=== PATIENT | male | born 1985 | race Two or more races ===

== ENCOUNTER 2018-01-28 21:41 | Emergency (ER) | payer MEDICAID ==
[~2018-01-28] VITALS: Ht 165.1 cm; Wt 99.8 kg
[~2018-01-28 21:41] MED LIST: BACTRIM DS TAB1 EAC1 ORAL; HYDROCODON-ACE1 EAC4 ORAL; IBUPROFEN600 MG ORAL; KEFLEX500 MG ORAL; NKM; NORCO 5-325 TA1 EACH ORAL; NORCO 5-325 TA1 EACH PO; OCUFLOX5 ML OP
[2018-01-28] MEDS ORDERED: IBUPROFEN600 MG ORAL (22:33)
--- NOTE | 2018-01-28 22:36 | Diagnostic Imaging Report ---
ADDENDUM - Added by Jose A Powers MD on 01/28/2018 10:53 PM (-07:00) Upon review of the images with the ordering provider, there is soft tissue thickening and edema at distal 2nd digit with nondisplaced tuft fracture. EXAM: XR Left Hand Complete, 3 or More Views CLINICAL HISTORY: TRAUMA TECHNIQUE: Frontal, lateral and oblique views of the left hand. COMPARISON: No relevant prior studies available. FINDINGS: Bones/joints: Unremarkable. No acute fracture. No dislocation. Soft tissues: Unremarkable. No radiopaque foreign body. Other findings: Minuscule likely thenar eminence 0.2 cm radiopaque focus, recommend direct visualization. IMPRESSION: 1. No acute osseous injury. 2. Minuscule likely thenar eminence 0.2 cm radiopaque focus, recommend direct visualization. 3. Otherwise unremarkable study. [employer] 01/28/18 22:52 Call From [facility] Bailey Saldivar MD on 01/28 22:50 (-07: 00)
[2018-01-28 22:58] VITALS: BP 154/98
--- NOTE | 2018-01-28 23:01 | Emergency Room Report ---
History of Present Illness General Chief Complaint: Upper Extremity Injury Source: Patient Present Illness HPI Patient presents with complaints of left index finger pain Patient reports that on Tuesday he was using a hammer and injured the index finger As there was some more signs of bruising He was concerning came to the ER Denies any chest pain or shortness of breath denies any wrist pain denies any back or flank pain Pain is 4 out of 10 Allergies: Coded Allergies: No Known Allergies (Unverified , 05/30/13) Patient History Past Medical History: see triage record Pertinent Family History: none Reviewed Nursing Documentation: PMH: Agreed; PSxH: Agreed Nursing Documentation-PMH Past Medical History: No Stated History Review of Systems All Other Systems: negative except mentioned in HPI Physical Exam Vital Signs Date Time Temp Pulse Resp B/P (MAP) Pulse Ox O2 Delivery O2 Flow Rate FiO2 01/28/18 21:52 98.1 69 18 154/98 99 Room Air 98.1 Sp02 EP Interpretation: reviewed, normal General Appearance: well appearing, no apparent distress Head: normocephalic, atraumatic Eyes: bilateral eye PERRL, bilateral eye EOMI ENT: normal pharynx, no angioedema Neck: full range of motion Musculoskeletal: other - Tender on palpation of the DIP on the distal index finger on the left side, patient is able to flex however and range of motion is intact Neurologic: alert, oriented x3, 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 Skin: other - Subungual hematoma index finger left side Lymphatic: no adenopathy Procedures Splinting Splinting : Consent: Verbal Location: Finger index left Pre-Made Type: metal Splint: Finger splint Pre-Proc Neuro Vasc Exam: normal Post-Proc Neuro Vasc Exam: normal Patient Tolerated: Well Complications: None Medical Decision Making Diagnostic Impression: Primary Impression: finger fracture ER Course Given the patient's history and presentation x-ray imaging was obtained Does show evidence of a tuft fracture At this time the subungual hematoma has also shown signs of affecting the nailbed there is ecchymosis and raised appearance in that area Unfortunately given the delayed presentation further intervention was not performed Patient had a splint applied And requires close outpatient follow-up Other X-Ray Diagnostic Results Other X-Ray Diagnostic Results : X-Ray ordered: Left hand # of Views/Limited Vs Complete: 3 View Indication: Pain EP Interpretation: Yes Interpretation: no dislocation, other - Soft tissue swelling, DIP fracture, no foreign body Impression: Other Electronically Signed by: Bailey Saldivar DO Last Vital Signs Date Time Temp Pulse Resp B/P (MAP) Pulse Ox O2 Delivery O2 Flow Rate FiO2 01/28/18 21:52 98.1 69 18 154/98 99 Room Air 98.1 Status: improved Disposition: HOME, SELF-CARE Condition: Improved Scripts Ibuprofen* (MOTRIN*) 600 Mg Tablet 600 MG ORAL Q8H PRN for For Pain, #20 TAB 0 Refills Prov: Bailey Saldivar DO 01/28/18 [facility]errals[facility] ([facility]P) Patient Instructions: Finger Fracture, [id number] Additional Instructions: Patient is provided with the discharge instructions notified to follow up with primary doctor in the next 2-3 days otherwise return to the er with any worsening symptoms. Please note that this report is being documented using [employer] technology. This can lead to erroneous entry secondary to incorrect interpretation by the dictating instrument. Bailey Saldivar DO Jan 28, 2018 23:01
== END 2018-01-28 23:00 | disposition home or self-care (01) ==
LOC: EMR 22:05
DX: S62.631A Displaced fracture of distal phalanx of left index finger, initial encounter for closed fracture (principal); W22.8XXA Striking against or struck by other objects, initial encounter; Y92.9 Unspecified place or not applicable
CPT/HCPCS: 29130; 99283

== ENCOUNTER 2018-03-01 18:38 | Emergency (ER) | payer MEDICAID ==
[~2018-03-01] VITALS: Ht 167.6 cm; Wt 97.1 kg
--- NOTE | 2018-03-01 18:55 | Emergency Room Report ---
History of Present Illness General Chief Complaint: Upper Respiratory Illness Source: Patient Present Illness HPI 32-year-old male presents to the emergency department complaining of 6 out of 10 in severity pain to the lower chest posteriorly. Patient reports he feels as though he is heart having a hard time breathing and taking a full breath. Patient denies trauma or fall he denies history of asthma, COPD, smoking. Patient denies recent URI or cough. Patient denies fevers or chills. Denies CP , Palpitations, LOC, AMS, dizziness, Changes in Vision, Sensation, paresthesias , or a sudden severe headache. Pt. reports suspicious for anxiety as he was in a verbal argument with his recently. Denies cardiac HX. denies recent travel or claudication. Allergies: Coded Allergies: No Known Allergies (Unverified , 05/30/13) Patient History Past Medical History: see triage record Past Surgical History: none Pertinent Family History: none Reviewed Nursing Documentation: PMH: Agreed; PSxH: Agreed Nursing Documentation-PMH Past Medical History: No Stated History Review of Systems All Other Systems: negative except mentioned in HPI Physical Exam Vital Signs Date Time Temp Pulse Resp B/P (MAP) Pulse Ox O2 Delivery O2 Flow Rate FiO2 03/01/18 18:48 98.5 86 14 127/78 95 Room Air 98.4 Sp02 EP Interpretation: reviewed, normal General Appearance: no apparent distress, alert, GCS 15, non-toxic Head: normocephalic, atraumatic Eyes: bilateral eye normal inspection, bilateral eye PERRL ENT: hearing grossly normal, normal voice Neck: full range of motion Respiratory: chest non-tender, lungs clear, normal breath sounds, no rhonchi, no respiratory distress, no wheezing, decreased breath sounds - lower lobes bilaterally/ distant compared to the top. , speaking full sentences Cardiovascular #1: regular rate, rhythm Gastrointestinal: non tender, soft Musculoskeletal: back normal, gait/station normal, normal range of motion, non- tender, other - pain not reproducible Neurologic: alert, oriented x3, responsive, motor strength/tone normal, sensory intact, normal gait, speech normal, grossly normal Psychiatric: judgement/insight normal Skin: normal color, no rash, warm/dry, well hydrated Medical Decision Making PA Attestation Dr. Dexter is my supervising Physician whom patient management has been discussed with. Diagnostic Impression: Primary Impression: Dyspnea Qualified Codes: R06.02 - Shortness of breath ER Course 32-year-old male presents to the emergency department complaining of 6 out of 10 in severity pain to the lower chest posteriorly. Patient reports he feels as though he is heart having a hard time breathing and taking a full breath. Patient denies trauma or fall he denies history of asthma, COPD, smoking. Patient denies recent URI or cough. Patient denies fevers or chills. Denies CP , Palpitations, LOC, AMS, dizziness, Changes in Vision, Sensation, paresthesias , or a sudden severe headache. Pt. reports suspicious for anxiety as he was in a verbal argument with his recently. Denies cardiac HX. denies recent travel or claudication. Ddx considered but are not limited to OH, PE, atelectasis, CHF, asthma, anxiety , GERD just to name a few. hyper-ventilation syndrome, pneumonia, costochondritis, chest wall pain, No acute pulmonary or cardiac causes at this time patient is in no acute distress his oxygen saturation is within normal limits, patient is not in any respiratory distress at this time. NAD and non-toxic in appearance. Vital signs: are WNL, pt. is afebrile H&PE are most consistent with mild decrease in lung sounds bilaterally in lower lobes, no wheezes, NAD, no reproducible ttp. ORDERS: -CXR: poor inspiration, elevated diaphragm. - CBC, CMP & Lipase : Unremarkable other than elevation in ALT. - CT Chest and Abdomen with Contrast: Unremarkable/ Normal. - d/w attending EKG consideration- it was determined to be not indicated. ED INTERVENTIONS: - D/w pt. conservative treatment. he remains NAD, non toxic in appearance. - D/w pt close outpatient follow up. will treat with antacid, anti-anxiety and albuterol as well. DISCHARGE: At this time pt. is stable for d/c to home. s. Will provide printed patient care instructions, and any necessary prescriptions. Care plan and follow up instructions have been discussed with the patient prior to discharge. Labs Test 03/01/18 20:17 White Blood Count 6.3 K/UL (4.8-10.8) Red Blood Count 5.03 M/UL (4.70-6.10) Hemoglobin 14.9 G/DL (14.2-18.0) Hematocrit 42.9 % (42.0-52.0) Mean Corpuscular Volume 85 FL (80-99) Mean Corpuscular Hemoglobin 29.6 PG (27.0-31.0) Mean Corpuscular Hemoglobin Concent 34.7 G/DL (32.0-36.0) Red Cell Distribution Width 11.2 % (11.6-14.8) Platelet Count 166 K/UL (150-450) Mean Platelet Volume 11.4 FL (6.5-10.1) Neutrophils (%) (Auto) 38.0 % (45.0-75.0) Lymphocytes (%) (Auto) 46.2 % (20.0-45.0) Monocytes (%) (Auto) 11.6 % (1.0-10.0) Eosinophils (%) (Auto) 1.8 % (0.0-3.0) Basophils (%) (Auto) 2.5 % (0.0-2.0) Urine Color Yellow Urine Appearance Clear Urine pH 6 (4.5-8.0) Urine Specific Altus 1.020 (1.005-1.035) Urine Protein 2+ (NEGATIVE) Urine Glucose (UA) Negative (NEGATIVE) Urine Ketones Negative (NEGATIVE) Urine Occult Blood 1+ (NEGATIVE) Urine Nitrite Negative (NEGATIVE) Urine Bilirubin Negative (NEGATIVE) Urine Urobilinogen 1 MG/DL (0.0-1.0) Urine Leukocyte Esterase Negative (NEGATIVE) Urine RBC 0-2 /HPF (0 - 0) Urine WBC 0-2 /HPF (0 - 0) Urine Squamous Epithelial Cells None /LPF (NONE/OCC) Urine Bacteria Few /HPF (NONE) Sodium Level 138 MMOL/L (136-145) Potassium Level 3.7 MMOL/L (3.5-5.1) Chloride Level 102 MMOL/L (98-107) Carbon Dioxide Level 26 MMOL/L (21-32) Anion Gap 10 mmol/L (5-15) Blood Urea Nitrogen 15 mg/dL (7-18) Creatinine 0.9 MG/DL (0.55-1.30) Estimat Glomerular Filtration Rate > 60 mL/min (>60) Glucose Level 97 MG/DL (74-106) Calcium Level 9.4 MG/DL (8.5-10.1) Total Bilirubin 0.5 MG/DL (0.2-1.0) Aspartate Amino Transf (AST/SGOT) 60 U/L (15-37) Alanine Aminotransferase (ALT/SGPT) 124 U/L (12-78) Alkaline Phosphatase 56 U/L (46-116) Total Protein 8.3 G/DL (6.4-8.2) Albumin 4.2 G/DL (3.4-5.0) Globulin 4.1 g/dL Albumin/Globulin Ratio 1.0 (1.0-2.7) Lipase 161 U/L (73-393) Chest X-Ray Diagnostic Results Chest X-Ray Diagnostic Results : Chest X-Ray Ordered: Yes # of Views/Limited/Complete: 1 View Indication: Shortness of Breath EP Interpretation: Yes PA Xray: Interpretation reviewed, by supervising MD, and agrees with findings. Interpretation: no consolidation, no effusion, no pneumothorax, no acute cardiopulmonary disease Impression: Other - poor inspiration and elevated diaphragm Electronically Signed by: Qing Baer PA-C CT/MRI/US Diagnostic Results CT/MRI/US Diagnostic Results : Imaging Test Ordered: CT Chest, Abdomen and Pelvis With Contrast Impression " No acute fracture or pneumothorax, and no major vascular injury, no PE or aortic dissection no focal consolidation or pleural effusion. No visceral injury appendicitis no SBO no diverticulitis no hydro-or calculus unremarkable gallbladder and pancreas."- Per official radiology report- Please see report for specific details. Last Vital Signs Date Time Temp Pulse Resp B/P (MAP) Pulse Ox O2 Delivery O2 Flow Rate FiO2 03/01/18 18:48 98.5 86 14 127/78 95 Room Air 98.4 Disposition: HOME, SELF-CARE Condition: Stable Scripts Albuterol Sulfate* (ALBUTEROL SULFATE MDI*) 8.5 Gm Hfa.aer.ad 2 PUFF INH Q4H, #1 INH 0 Refills Prov: Qing Baer 03/01/18 Ranitidine Hcl* (ZANTAC*) 150 Mg Tablet 150 MG ORAL TWICE A DAY for 7 Days, #14 TAB Prov: Qing Baer 03/01/18 Lorazepam* (ATIVAN*) 0.5 Mg Tablet 0.5 MG ORAL THREE TIMES A DAY, #9 TAB Prov: Qing Baer 03/01/18 Departure Forms: Return to Work Return to Work Date: Mar 03, 2018 Work Restrictions: None Return to Full Activity: Mar 03, 2018 Patient Instructions: Shortness of Breath, [id number] Additional Instructions: Take medications as directed. Follow up with a Primary Care Provider within 3 days, even if your symptoms have resolved. --Please review list of primary care clinics, if you do not already have a primary care provider Return sooner to ED if new symptoms occur, or current symptoms become worse. Do not drink alcohol, drive, or operate heavy machinery while taking Ativan as this may cause drowsiness. - Please note that this Emergency Department Report was dictated using [employer] construction specialist technology software, occasionally this can lead to erroneous entry secondary to interpretation by the dictation equipment. Qing Baer Mar 01, 2018 18:55
[2018-03-01 19:00] VITALS: BP 127/78
[2018-03-01] MEDS ORDERED: Isovue-300 100ml vial INJ PRN (19:45)
[2018-03-01 20:35] LABS: APPEARANCE,URINE CLEAR; BILIRUBIN, URINE NEGATIVE (NEGATIVE); GLUCOSE, URINE (UA) NEGATIVE (NEGATIVE); KETONES,URINE NEGATIVE (NEGATIVE); LEUKOCYTE ESTERASE ,URINE NEGATIVE (NEGATIVE); NITRITE,URINE NEGATIVE (NEGATIVE); PH,URINE 6 (4.5-8.0); PROTEIN,URINE 2+ (NEGATIVE); UROBILINOGEN,URINE 1 MG/DL (0.0-1.0)
[2018-03-01 20:47] LABS: ANION GAP 10 mmol/L (5-15); BLOOD UREA NITROGEN 15 mg/dL (7-18); CALCIUM 9.4 MG/DL (8.5-10.1); CARBON DIOXIDE 26 MMOL/L (21-32); CHLORIDE 102 MMOL/L (98-107); CREATININE 0.9 MG/DL (0.55-1.30); POTASSIUM 3.7 MMOL/L (3.5-5.1); SODIUM 138 MMOL/L (136-145)
[2018-03-01 20:52] LABS: ALANINE AMINOTRANSFERASE 124 U/L (12-78); ALBUMIN 4.2 G/DL (3.4-5.0); ALKALINE PHOSPHATASE 56 U/L (46-116); ASPARTATE AMINO TRANSFERASE 60 U/L (15-37); BILIRUBIN,TOTAL 0.5 MG/DL (0.2-1.0)
[2018-03-01 20:54] LABS: BASOPHILS % (AUTO) 2.5 % (0.0-2.0); COLOR,URINE YELLOW; EOSINOPHILS % (AUTO) 1.8 % (0.0-3.0); HEMATOCRIT 42.9 % (42.0-52.0); HEMOGLOBIN 14.9 G/DL (14.2-18.0); LYMPHOCYTES % (AUTO) 46.2 % (20.0-45.0); MEAN CORPUSCULAR VOLUME 85 FL (80-99); MONOCYTES % (AUTO) 11.6 % (1.0-10.0); PLATELET COUNT 166 K/UL (150-450); RED BLOOD COUNT 5.03 M/UL (4.70-6.10); RED CELL DISTRIBUTION WIDTH 11.2 % (11.6-14.8); WHITE BLOOD COUNT 6.3 K/UL (4.8-10.8)
[2018-03-01] MEDS ORDERED: ZANTAC150 MG ORAL (21:55)
[2018-03-01] MEDS ORDERED: ALBUTEROL SULF8.5 GM INH (21:55)
[2018-03-01] MEDS ORDERED: ATIVAN0.5 MG ORAL (21:55)
[2018-03-01 22:36] VITALS: BP 138/80
[2018-03-01 22:48] VITALS: BP 138/80
--- NOTE | 2018-03-02 08:37 | Diagnostic Imaging Report ---
Indication: Chest pain Technique: One view of the chest Comparison: 05/29/2013 Findings: Less optimal inspiration currently. The heart is borderline enlarged. The lungs and pleural spaces are clear. Impression: Borderline cardiomegaly. No definite acute process.
--- NOTE | 2018-03-02 08:56 | Diagnostic Imaging Report ---
INDICATION: 6 out of 10 in severity pain in the lower chest and upper abdomen, difficulty breathing TECHNIQUE: No oral contrast, per emergency room physician request. IV administration nonionic contrast. Multiphasic spiral acquisitions obtained through the chest, abdomen and pelvis Multiplanar reconstructions were generated. Total dose length product 1963.69 mGycm. CTDIvol(s) 20.02,17.62 mGy. Radiation dose was minimized using automated exposure control COMPARISON: none FINDINGS Chest: Lungs are clear. No infiltrates, effusions, nodules, or masses. No congestion. The heart size is normal. No pericardial effusion. No mediastinal or hilar mass or adenopathy. No axillary or chest wall mass or adenopathy. The bones are unremarkable. The esophagus is unremarkable. The included portions of the thyroid are unremarkable. Abdomen pelvis: Normal appendix. No evidence of diverticulosis or diverticulitis. No small bowel distention. No free or loculated intraperitoneal air or fluid is evident. The liver is hypoattenuating, consistent with fatty change. No focal abnormality. The gallbladder, bile ducts, pancreas, spleen, adrenals are unremarkable. The left kidney demonstrates a 4 cm interpolar region cyst. Both kidneys demonstrate subcentimeter low-attenuation lesions which are too small to characterize. No retroperitoneal or mesenteric mass or adenopathy. No pelvic mass or adenopathy. Impression: Unremarkable chest. No acute abdominal or pelvic abnormality Fatty liver Left renal cyst. Bilateral subcentimeter low-attenuation renal lesions, too small to characterize, most likely benign simple cortical cysts. No further follow-up necessary This agrees with the preliminary interpretation provided overnight by [facility], with minor variations. The CT scanner at [facility] is accredited by the [employer] and the scans are performed using protocols designed to limit radiation exposure to as low as reasonably achievable to attain images of sufficient resolution adequate for diagnostic evaluation.
== END 2018-03-01 22:50 | disposition home or self-care (01) ==
LOC: EMR 19:20
DX: R06.02 Shortness of breath (principal); R07.9 Chest pain, unspecified; R10.10 Upper abdominal pain, unspecified
CPT/HCPCS: 36415; 71045; 71260; 74177; 80053; 81003; 83690; 85025; 99284; Q9967

== ENCOUNTER 2018-12-06 16:46 | Emergency (ER) | payer MEDICAID ==
[~2018-12-06] VITALS: Ht 165.1 cm; Wt 97.5 kg
[~2018-12-06 16:46] MED LIST changes: +ALBUTEROL SULF8.5 GM INH; +ATIVAN0.5 MG ORAL; +ZANTAC150 MG ORAL
[2018-12-06 16:58] VITALS: BP 136/83
--- NOTE | 2018-12-06 16:59 | NUR ---
ED Nurse Note:pt. came with left eye swelling, no visual difficulties
--- NOTE | 2018-12-06 17:12 | Emergency Room Report ---
History of Present Illness General Chief Complaint: Eye Problems Source: Patient Present Illness HPI Patient has had a cyst over the left eye for many months. Over the last few days it seems to be getting bigger and he has been mashing it. He rates pain = tender 5/10 but 8/10 pain aching and when it's pressed. He denies any fevers or chills. Eye has been watering. The upper lid is swollen. It was worse this morning. He's not taking any medication for this. His tetanus is up-to- date and was 1-1/2 years ago. No change in vision. The patient denies any medical problems. No headache. 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 Nursing Documentation: PMH: Agreed; PSxH: Agreed Nursing Documentation-PMH Past Medical History: No Stated History Review of Systems Constitutional: Denies: fever Eye: Reports: see HPI ENT: Denies: nose congestion, nasal discharge Skin: Reports: see HPI Neurological: Reports: see HPI Physical Exam Vital Signs Date Time Temp Pulse Resp B/P (MAP) Pulse Ox O2 Delivery O2 Flow Rate FiO2 12/06/18 16:50 98.2 87 15 136/83 (100) 97 Room Air Sp02 EP Interpretation: reviewed, normal General Appearance: well appearing, no apparent distress Head: normocephalic, atraumatic Eyes: left eye other - swelling and tenderness ; bilateral eye PERRL, bilateral eye EOMI ENT: normal pharynx Neck: full range of motion, supple Respiratory: no respiratory distress, speaking full sentences Cardiovascular #1: regular rate, rhythm Cardiovascular #2: 2+ radial (R) Gastrointestinal: normal inspection Musculoskeletal: gait/station normal Neurologic: alert, oriented x3, grossly normal Psychiatric: mood/affect normal Skin: other - swelling and excoriated top of 1 cm diameter cyst L outer eyelid , no fulctuance or significant erythema Medical Decision Making Diagnostic Impression: Primary Impression: Cellulitis of left upper eyelid ER Course Patient presents with swelling and tenderness left upper eyelid. There is no fluctuance at this time. Differential includes cellulitis, sebaceous cyst, abscess amongst others. At this time there is no indication for incision and drainage. Antibiotics are indicated. Also Motrin ordered. He is advised to return in 2 days' time if it's not better with oral antibiotics , local care. Patient stable for outpatient observation and treatment. Last Vital Signs Date Time Temp Pulse Resp B/P (MAP) Pulse Ox O2 Delivery O2 Flow Rate FiO2 12/06/18 18:26 98.2 79 15 136/83 97 Room Air Status: improved Disposition: HOME, SELF-CARE Condition: Improved Scripts Bacitracin (Bacitracin) 28.4 Gm Oint...g. 1 APPLIC TOPIC BID, #20 GM Prov: Akil Fitzgerald MD 12/06/18 Trimethoprim/Sulfamethoxazole 160/800* (BACTRIM DS TABLET*) 1 Each Tablet 1 TAB ORAL Q12H, #14 TAB 0 Refills Prov: Akil Fitzgerald MD 12/06/18 Ibuprofen* (MOTRIN*) 600 Mg Tablet 600 MG ORAL Q6H PRN for For Pain, #20 TAB 0 Refills Prov: Akil Fitzgerald MD 12/06/18 Akil Fitzgerald MD December 06, 2018 17:12
[2018-12-06] MEDS ORDERED: Bactrim-DS 1 tab ORAL ONE (17:15)
[2018-12-06] MEDS ORDERED: Bacitracin Oint UD TOPIC ONE (17:15)
[2018-12-06] MEDS ORDERED: BACTRIM DS TAB1 EAC1 ORAL (17:37)
[2018-12-06] MEDS ORDERED: BACITRACIN15 GM TOPIC (17:37)
[2018-12-06] MEDS ORDERED: IBUPROFEN600 MG ORAL (17:37)
--- NOTE | 2018-12-06 18:00 | NUR ---
ER DISCHARGE NOTE: Patient is cleared to be discharged per ERMD, pt is aox4, on room air, with stable vital signs. pt was given dc and prescription instructions, pt was able to verbalize understanding. pt is able to ambulate with steady gait. pt took all belongings.
[2018-12-06 18:26] VITALS: BP 136/83
== END 2018-12-06 18:00 | disposition home or self-care (01) ==
LOC: EMR 17:46
DX: H00.034 Abscess of left upper eyelid (principal)
CPT/HCPCS: 99282

== ENCOUNTER 2018-12-15 16:32 | Emergency (ER) | payer MEDICAID ==
[~2018-12-15] VITALS: Ht 165.1 cm; Wt 97.5 kg
[~2018-12-15 16:32] MED LIST changes: +BACITRACIN15 GM TOPIC
[2018-12-15] MEDS ORDERED: NKM (16:40)
[2018-12-15 16:47] VITALS: BP 131/90
--- NOTE | 2018-12-15 16:49 | NUR ---
ED Nurse Note: pt walked in c/o left eye lid pain . eye swollen and red . awaiting ermd eval.
[2018-12-15] MEDS ORDERED: BACTRIM DS TAB1 EAC1 ORAL (17:01)
[2018-12-15] MEDS ORDERED: CEPHALEXIN500 MG ORAL (17:01)
--- NOTE | 2018-12-15 17:14 | NUR ---
ED Nurse Note: PT CLEARED TO BE D/C PER ERMD, PT DISCHARGE AND AFTERCARE INSTRUCTION PROVIDED W/ PRESCRIPTION, PT EDUCATION DONE VIA DISCUSSION AND HANDOUT, PT ADVISED TO FOLLOW UP WITH SPECIALIST, LIST PROVIDED BY ERMD, PT VERBALIZED UNDERSTANDING AND AGREES WITH PLAN, ADVISED TO RETURN IF CHANGES IN CONDITION, VSS, AMBULATORY W/ STEADY GAIT, LEFT W/ ALL BELONGINGS.
--- NOTE | 2018-12-15 19:06 | Emergency Room Report ---
History of Present Illness General Chief Complaint: Skin Rash/Abscess Source: Patient Present Illness HPI 33-year-old male presents ED for evaluation. Patient is standing with left upper eyelid pain and swelling. States he was seen here on 12/06. Was prescribed antibiotics and states that he got somewhat improved but still persists. Pain is dull, 7 out of 10, nonradiating. Denies any discharge. Denies any photophobia or blurry vision. No other aggravating relieving factors. Denies any other associated symptoms Allergies: Coded Allergies: No Known Allergies (Unverified , 12/15/18) Patient History Past Medical History: none Past Surgical History: none Pertinent Family History: none Social History: Denies: smoking, alcohol use, drug use Immunizations: UTD Reviewed Nursing Documentation: PMH: Agreed; PSxH: Agreed Nursing Documentation-PMH Past Medical History: No Stated History Review of Systems All Other Systems: negative except mentioned in HPI Physical Exam Vital Signs Date Time Temp Pulse Resp B/P (MAP) Pulse Ox O2 Delivery O2 Flow Rate FiO2 12/15/18 16:35 98.2 88 18 131/90 (104) 96 Room Air Sp02 EP Interpretation: reviewed, normal General Appearance: no apparent distress, alert, GCS 15, non-toxic Head: normocephalic Eyes: left eye lid inflammation - area of swelling/fluctuance to L upper eyelid. no discharge. no induration; bilateral eye normal inspection, bilateral eye PERRL ENT: normal ENT inspection, TMs + canals normal Neck: full range of motion, supple/symm/no masses Respiratory: normal inspection Cardiovascular #1: normal inspection Gastrointestinal: normal inspection Rectal: deferred Genitourinary: no CVA tenderness Musculoskeletal: normal inspection Neurologic: alert, oriented x3, responsive, motor strength/tone normal, sensory intact, speech normal Psychiatric: normal inspection Skin: normal inspection Lymphatic: normal inspection Medical Decision Making Diagnostic Impression: Primary Impression: Cellulitis of eyelid Qualified Codes: H00.036 - Abscess of eyelid left eye, unspecified eyelid ER Course Hospital Course 33 yo M presents to ED c/o L upper eyelid pain/swelling Differential diagnoses include: Cellulitis, dermatitis, insect bite, abscess Clinical course Patient placed on stretcher. After initial history, physical exam reveals a male in no acute distress. On exam there is an area of nodular swelling and fluctuance to the upper eyelid. No surrounding erythema or induration. Nontender and exam. No discharge noted. I reviewed EMR. Patient initially placed on Bactrim. Discussed findings with patient. It appears that the presentation has improved somewhat. I explained that patient would need to follow-up with ENT/plastic/ ophthalmology for potential drainage of the eyelid We'll continue another course of antibiotics and I will provide him with referrals. Patient agrees with plan Diagnosis - cellulitis of eyelid stable and discharged to home with prescription for keflex, bactrim. Instructed to followup with ENT/plastics/optho. Instructed return to ED if symptoms recur or worsen Last Vital Signs Date Time Temp Pulse Resp B/P (MAP) Pulse Ox O2 Delivery O2 Flow Rate FiO2 12/15/18 17:15 98.2 89 18 131/90 96 Room Air Status: improved Disposition: HOME, SELF-CARE Condition: Stable Scripts Cephalexin* (KEFLEX*) 500 Mg Capsule 500 MG ORAL EVERY 6 HOURS for 7 Days, CAP Prov: Jaylen Dowd MD 12/15/18 Trimethoprim/Sulfamethoxazole 160/800* (BACTRIM DS TABLET*) 1 Each Tablet 1 TAB ORAL Q12H, #14 TAB Prov: Jaylen Dowd MD 12/15/18 Referrals: [facility] ([facility]P) Andrew Vasquez M.D., MD, Perry MD Patel, Vivek-Sagar MD Patient Instructions: Blepharitis, [id number] Jaylen Dowd MD December 15, 2018 19:06
== END 2018-12-15 17:15 | disposition home or self-care (01) ==
LOC: EMR 17:13
DX: H00.034 Abscess of left upper eyelid (principal)
CPT/HCPCS: 99283